=== PATIENT | female | born 2000 | race Hispanic/Latino ===

== ENCOUNTER 2023-03-10 02:08 | Emergency (ER) | payer OTHER, MEDICAID ==
[~2023-03-10] VITALS: Ht 157.5 cm; Wt 62.4 kg
[~2023-03-10 02:08] MED LIST: CEPH500B PO; LACT20PA6 PO
[2023-03-10] MEDS ORDERED: ONDANSETRON 4MG INJ ONE (02:18)
[2023-03-10] MEDS ORDERED: MAG/ALUM/SIMETH 30 ML UDCUP ONE (02:22)
[2023-03-10] MEDS ORDERED: FAMOTIDINE 20MG VIAL IV ONE (02:30)
[2023-03-10] MEDS ORDERED: ONDANSETRON 4MG INJ IVP ONE (02:30)
[2023-03-10] MEDS ORDERED: 0.9%NACL 1000ML 1,000 ML IV ONE ×2 (02:30→03:00)
[2023-03-10] MEDS ORDERED: LIDOCAINE HCL 2% VISCOUS 15 ML UDCUP PO ONE (02:30)
[2023-03-10] MEDS ORDERED: MAG/ALUM/SIMETH 30 ML UDCUP PO ONE (02:30)
[2023-03-10 02:34] LABS: BASOPHILS # (AUTO) 0.03 K/uL (0.00-0.20); BASOPHILS % (AUTO) 0.2 % (0.0-5.0); EOSINOPHILS # (AUTO) 0.07 K/uL (0.00-0.70); EOSINOPHILS % (AUTO) 0.5 % (0.0-8.0); HEMATOCRIT 45.5 % (36-48); IMMATURE GRANULOCYTE ABSOLUTE 0.04 K/uL (0-1); LYMPHOCYTES # (AUTO) 0.5 K/uL (1.0-4.8); LYMPHOCYTES % (AUTO) 3.7 % (21.0-51.0); MEAN CORPUSCULAR HEMOGLOBIN 29.4 pg (27.0-33.0); MEAN CORPUSCULAR HGB CONC 33.8 g/dL (32.0-36.0); MEAN CORPUSCULAR VOLUME 86.8 fL (79-99); MONOCYTES # (AUTO) 0.9 K/uL (0.1-1.0); MONOCYTES % (AUTO) 6.8 % (3.0-13.0); NEUTROPHILS # (AUTO) 11.7 K/uL (1.8-7.7); NEUTROPHILS % (AUTO) 88.5 % (40.0-77.0); PLATELET COUNT (AUTO) 215 K/uL (130-400); RED BLOOD CELL COUNT(AUTO) 5.24 MIL/uL (4.00-5.50); RED CELL DISTRIBUTION WIDTH 12.6 % (11.0-15.5); WHITE BLOOD COUNT (AUTO) 13.2 K/uL (4.8-10.8)
[2023-03-10 02:42] LABS: CREATININE 0.8 mg/dL (0.5-1.5); POTASSIUM 3.8 mmol/L (3.5-5.1)
[2023-03-10 02:43] LABS: APPEARANCE,URINE CLOUDY (CLEAR); BILIRUBIN,URINE NEGATIVE (NEGATIVE); COLOR,URINE YELLOW (YELLOW); GLUCOSE, URINE (UA) NEGATIVE (NEGATIVE); KETONES,URINE NEGATIVE (NEGATIVE); LEUKOCYTE ESTERASE ,URINE 75 Leu/uL (NEGATIVE); NITRATE,URINE NEGATIVE (NEGATIVE); OCCULT BLOOD,URINE LARGE (NEGATIVE); PH,URINE 5.5 (5.0-8.0); PROTEIN,URINE 50 mg/dL (NEGATIVE); UROBILINOGEN,URINE 0.2 mg/dL (0.2-1.0)
[2023-03-10 02:45] LABS: ADD UA MICROSCOPIC YES
[2023-03-10 02:46] LABS: BILIRUBIN,TOTAL 0.6 mg/dL (0.2-1.0); TOTAL PROTEIN, SERUM 7.5 g/dL (6.0-8.3)
[2023-03-10 02:50] LABS: HCG,QUALITATIVE URINE NEGATIVE (NEGATIVE)
[2023-03-10 02:57] LABS: BACTERIA,URINE RARE /HPF (None Seen); MUCUS,URINE FEW LPF (None Seen); RBC,URINE TNTC /HPF (0-1); SQUAMOUS EPITHELIAL CELL,UR MOD /HPF (0-2); WBC,URINE 26-50 /HPF (0-1)
[2023-03-10] MEDS ORDERED: METRONIDAZOLE 500MG/100ML BAG 100 ML IVPB ONE (03:00)
[2023-03-10] MEDS ORDERED: METRONIDAZOLE 500MG/100ML BAG 100 ML ONE (03:02)
[2023-03-10] MEDS ORDERED: CIPROFLOXACIN HCL 500 MG TABLET ONE (03:05)
[2023-03-10 03:07] LABS: WBC MORPHOLOGY CONSISTENT W/DIFF
[2023-03-10 04:24] VITALS: BP 116/64; PULSE 86; RESP 16; O2SAT 98
[2023-03-10] MEDS ORDERED: CIPR-278 PO (05:15)
[2023-03-10] MEDS ORDERED: METR-172 PO (05:15)
[2023-03-10] MEDS ORDERED: MACR100 PO (05:15)
== END 2023-03-10 05:22 | disposition home or self-care (01) ==
LOC: EDH 02:08
DX: N39.0 Urinary tract infection, site not specified (principal); A04.9 Bacterial intestinal infection, unspecified
CPT/HCPCS: 99284; 96365; 96375; 80053; 83690; 85025; 87088; 81001; 81025; 36415; J3490 ×2; J7030; J2405